=== PATIENT | female | born 1990 | race Caucasian/White ===

== ENCOUNTER 2017-12-18 19:42 | Observation (INO) | payer OTHER ==
[~2017-12-18] VITALS: Ht 157.5 cm; Wt 75.5 kg
[2017-12-18] MEDS ORDERED: PROMETRIUM200 M1 VG (20:03)
[2017-12-18] MEDS ORDERED: ASPIRIN 81M81 MG/TA2 PO (20:03)
[2017-12-18] MEDS ORDERED: PRENATAL PO (20:04)
[2017-12-18] MEDS ORDERED: VITAMIN D 400400 IU PO (20:04)
[2017-12-18 20:22] LABS: BASO % 0.2 % (0.0-2.0); EOS % 0.2 % (0-4.0); GRAN # 3.9 (1.4-6.5); GRAN % 66.4 % (42.2-75.2); HEMOGLOBIN 12.2 g/dl (12.5-16.0); LYMPH # 1.5 (1.2-3.4); LYMPH % 26.2 % (20.0-51.0); MEAN CELL VOLUME 82 fl (80.0-100.0); MEAN CORPUSCULAR HEMOGLOBIN 28 pg (27.0-31.0); MEAN CORPUSCULAR HGB CONC 34 g/dl (33.0-37.0); MEAN PLATELET VOLUME 10.9 fl (7.4-10.4); MONO # 0.4 (0.1-0.6); MONO % 6.8 % (1.7-9.3); PLATELET COUNT 175 K/mm3 (130-400); RED BLOOD COUNT 4.38 M/mm3 (4.10-5.30); REDCELL DISTRIBUTION WIDTH-CV 12.4 % (11.5-14.5)
[2017-12-18 20:22] LABS: COLLECTION METHOD CLEAN CATCH
[2017-12-18 20:34] LABS: MUCOUS Present /lpf; PH 5 (5-8); SQUAMOUS EPITHELIAL 0-2 /hpf; URINE APPEARANCE Clear; URINE BACTERIA Rare /hpf; URINE BILIRUBIN Negative (NEGATIVE); URINE BLOOD 2+ (NEGATIVE); URINE COLOR Straw; URINE GLUCOSE Negative (NEGATIVE); URINE KETONE 1+ (NEGATIVE); URINE LEUKOCYTE ESTERASE Negative (NEGATIVE); URINE NITRATE Negative (NEGATIVE); URINE PROTEIN(semi-quant) Negative (NEGATIVE); URINE RBC 0-2 /hpf; URINE UROBILINOGEN Negative (NEGATIVE)
[2017-12-18 20:51] LABS: HEMATOCRIT 35.9 % (37.0-47.0)
[2017-12-19] VITALS: BP 124/67; PULSE 97; TEMP 98.8
[2017-12-19 00:29] VITALS: BP 124/67; PULSE 97; TEMP 98.8
[2017-12-19 00:36] LABS: BASO % 0.2 % (0.0-2.0); EOS % 0.6 % (0-4.0); HEMOGLOBIN 11.5 g/dl (12.5-16.0); LYMPH # 1.8 (1.2-3.4); LYMPH % 33.5 % (20.0-51.0); MEAN CELL VOLUME 80 fl (80.0-100.0); MEAN CORPUSCULAR HEMOGLOBIN 28 pg (27.0-31.0); MEAN CORPUSCULAR HGB CONC 35 g/dl (33.0-37.0); MEAN PLATELET VOLUME 10.8 fl (7.4-10.4); MONO # 0.4 (0.1-0.6); MONO % 7.3 % (1.7-9.3); PLATELET COUNT 153 K/mm3 (130-400); RED BLOOD COUNT 4.11 M/mm3 (4.10-5.30); REDCELL DISTRIBUTION WIDTH-CV 12.5 % (11.5-14.5)
[2017-12-19 07:23] LABS: BASO % 0.3 % (0.0-2.0); EOS % 0.3 % (0-4.0); GRAN # 1.7 (1.4-6.5); GRAN % 44.4 % (42.2-75.2); LYMPH # 1.8 (1.2-3.4); LYMPH % 46.5 % (20.0-51.0); MEAN CELL VOLUME 83 fl (80.0-100.0); MEAN CORPUSCULAR HEMOGLOBIN 28 pg (27.0-31.0); MEAN CORPUSCULAR HGB CONC 34 g/dl (33.0-37.0); MEAN PLATELET VOLUME 10.6 fl (7.4-10.4); MONO # 0.3 (0.1-0.6); MONO % 8.2 % (1.7-9.3); PLATELET COUNT 134 K/mm3 (130-400); RED BLOOD COUNT 3.93 M/mm3 (4.10-5.30); REDCELL DISTRIBUTION WIDTH-CV 12.6 % (11.5-14.5)
[2017-12-19 07:28] LABS: HEMATOCRIT 32.5 % (37.0-47.0)
[2017-12-19 08:15] VITALS: BP 117/68; PULSE 85; TEMP 98.5
== END 2017-12-19 16:00 | disposition home or self-care (01) ==
LOC: COL.ER 19:42 → EDBD 23:12 → OB 23:12
PROVIDERS: Nurse Practitioner; Obstetrics & Gynecology
DX: R10.32 Left lower quadrant pain (principal); O46.91 Antepartum hemorrhage, unspecified, first trimester; N80.9 Endometriosis, unspecified; Z79.82 Long term (current) use of aspirin
CPT/HCPCS: G0378; J2270; J2405; J7030; J7120